=== PATIENT | female | born 1995 | race Two or more races ===

== ENCOUNTER 2024-07-06 02:35 | Inpatient (IN) | payer BC ==
[2024-07-06] MEDS ORDERED: Butorphanol 2 MG/ML SDV IVPUSH PRN (03:58)
[2024-07-06] MEDS ORDERED: Sodium Chloride 0.9% 20 ML SDV IV PRN (03:58)
[2024-07-06] MEDS ORDERED: Ondansetron 4 MG/2 ML SDV IVPUSH PRN (03:58)
[2024-07-06] MEDS ORDERED: Sodium Chloride 0.9% 2.5 ML Syringe FLUSH PRN (03:58)
[2024-07-06] MEDS ORDERED: Sodium Chloride 0.9% 10 ML Syringe FLUSH PRN (03:58)
[2024-07-06] MEDS ORDERED: Carboprost Tromethamine 250 MCG/1 mL Vial IM PRN (03:58)
[2024-07-06] MEDS ORDERED: Misoprostol 200 MCG Tab PO PRN (03:58)
[2024-07-06] MEDS ORDERED: Methylergonovine 0.2 MG/1 ML Amp IM PRN (03:58)
[2024-07-06] MEDS ORDERED: Lidocaine 1% 50 ML MDV INJECT PRN (03:58)
[2024-07-06] MEDS ORDERED: Misoprostol 200 MCG Tab RECTAL PRN (03:58)
[2024-07-06] MEDS ORDERED: Water For Irrigation,Sterile 1,000 ML Container IRR PRN (03:58)
[2024-07-06] MEDS ORDERED: Oxytocin/0.9 % Sodium Chloride 30 UNIT/500 ML BAG IV SCH (04:00)
[2024-07-06 04:13] LABS: HEMATOCRIT 39.9 % (37.0-47.0); HEMOGLOBIN 13.6 g/dL (12.0-16.0); MEAN CORPUSCULAR HEMOGLOBIN 29.1 pg (28.0-32.0); MEAN CORPUSCULAR HGB CONC 34.1 g/dL (32.0-36.0); MEAN CORPUSCULAR VOLUME 85.4 fL (83.0-99.0); PLATELET COUNT,PLT 168 K/uL (150-400); RED BLOOD CELL COUNT 4.67 M/uL (4.10-5.30); WHITE BLOOD CELL COUNT,WBC 9.39 K/uL (3.9-11.3)
[2024-07-06] MEDS: Lactated Ringers 1,000 ML IV SCH (04:33)
[2024-07-06] MEDS: Oxytocin/0.9 % Sodium Chloride 30 UNIT/500 ML BAG IV SCH (07:10)
[2024-07-06] MEDS: Ropivacaine HCl/PF 200 ML ONE (11:19)
[2024-07-06] MEDS ORDERED: ePHEDrine 50 MG/ML SDV IVPUSH PRN (11:26)
[2024-07-06] MEDS ORDERED: Phenylephrine HCl In 0.9% NaCl 1 MG/10 ML Syringe IVPUSH PRN (11:26)
[2024-07-06] MEDS ORDERED: ePHEDrine 50 MG/ML SDV IM PRN (11:26)
[2024-07-06] MEDS ORDERED: Bupivacaine 0.5% 10 ML SDV INJECT ONE (11:26)
[2024-07-06] MEDS ORDERED: Ropivacaine HCl/PF 400 MG in Premix Bag 1 BAG EPIDUR SCH (11:30)
[2024-07-06] MEDS ORDERED: dexmedeTOMIDine HCl 200 MCG/2 ML SDV EPIDUR SCH (11:30)
[2024-07-06] MEDS: Ampicillin 2 GM in Sodium Chloride 0.9% 100 ML IV SCH (22:32)
[2024-07-06] MEDS: Acetaminophen 1,000 MG in Premix Bag 1 BAG IV ONE (22:57)
[2024-07-06] MEDS: Gentamicin 330 MG in Sodium Chloride 0.9% 100 ML IV SCH (23:14)
[2024-07-07] MEDS: Tranexamic Acid in NACL,ISO-OS 1,000 MG in Premix Bag 1 BAG IV PRN (02:57)
[2024-07-07] MEDS ORDERED: Ibuprofen 800 MG Tab PO PRN (03:21)
[2024-07-07] MEDS ORDERED: Simethicone 80 MG Tab.Chew PO PRN (03:21)
[2024-07-07] MEDS ORDERED: Aluminum Hydroxide/Magnesium Hydroxide/Simethicone Susp 30 ML Cup PO PRN (03:21)
[2024-07-07] MEDS ORDERED: Clindamycin Phosphate in D5W 900 MG in Premix Bag 1 BAG IV SCH (03:30)
[2024-07-07 03:46] LABS: PH,UMBILICAL ARTERIAL 7.203 (7.18-7.38); PH,UMBILICAL VENOUS 7.292 (7.25-7.45)
[2024-07-07] MEDS: Clindamycin Phosphate in D5W 50 ML IV ONE (04:05)
[2024-07-07 04:20] LABS: BASOPHILS ABSOLUTE AUTO 0.02 K/uL (0.00-0.20); BASOPHILS PERCENT AUTO 0.1 % (0.0-1.0); HEMATOCRIT 37.7 % (37.0-47.0); HEMOGLOBIN 13.1 g/dL (12.0-16.0); IMMATURE GRAN ABSOLUTE AUTO 0.13 K/uL (0.00-0.05); IMMATURE GRAN PERCENT AUTO 0.7 % (0.0-0.4); LYMPHOCYTES ABSOLUTE AUTO 0.83 K/uL (1.00-4.80); LYMPHOCYTES PERCENT AUTO 4.6 % (24.0-44.0); MEAN CORPUSCULAR HEMOGLOBIN 29.5 pg (28.0-32.0); MEAN CORPUSCULAR HGB CONC 34.7 g/dL (32.0-36.0); MEAN CORPUSCULAR VOLUME 84.9 fL (83.0-99.0); MEAN PLATELET VOLUME 10.1 fL (9.4-12.3); MONOCYTES ABSOLUTE AUTO 1.44 K/uL (0.00-0.80); MONOCYTES PERCENT AUTO 7.9 % (0.0-8.0); NEUTROPHILS ABSOLUTE AUTO 15.75 K/uL (1.80-7.70); NEUTROPHILS PERCENT AUTO 86.7 % (41.0-71.0); PLATELET COUNT,PLT 139 K/uL (150-400); RED BLOOD CELL COUNT 4.44 M/uL (4.10-5.30); WHITE BLOOD CELL COUNT,WBC 18.17 K/uL (3.9-11.3)
[2024-07-07 04:42] LABS: A/G RATIO 0.6 (0.9-1.6); ALBUMIN 2.3 g/dL (3.4-5.0); BILIRUBIN TOTAL 0.7 mg/dL (0.2-1.0); CALCIUM 8.3 mg/dL (8.5-10.1); CARBON DIOXIDE,CO2 18.5 mmol/L (21.0-32.0); CREATININE 0.9 mg/dL (0.6-1.0); EST CRCL DRUG DOSING (CG) 72.29 mL/min; PROTEIN TOTAL,TP 6.2 g/dL (6.4-8.2)
[2024-07-07] MEDS: Witch Hazel Medicated Pads 40/Jar TOP PRN (04:48)
[2024-07-07] MEDS: Benzocaine/Menthol 20%-0.5% Spray 78 GM Cannister TOP PRN (04:48)
[2024-07-07] MEDS: Lanolin 100% Cream 7 GM Tube TOP PRN (04:49)
[2024-07-07] MEDS: Acetaminophen 500 MG Tab PO PRN (05:33)
[2024-07-07] MEDS: Phenylephrine HCl In 0.9% NaCl 1 MG/10 ML Syringe ONE (08:19)
[2024-07-07] MEDS: Bupivacaine 0.5% 10 ML SDV ONE (08:20)
[2024-07-07] MEDS: Clindamycin Phosphate in D5W 900 MG in Premix Bag 1 BAG IV SCH (12:10)
[2024-07-08 06:08] LABS: BASOPHILS ABSOLUTE AUTO 0.03 K/uL (0.00-0.20); BASOPHILS PERCENT AUTO 0.2 % (0.0-1.0); EOSINOPHILS ABSOLUTE AUTO 0.05 K/uL (0.00-0.45); EOSINOPHILS PERCENT AUTO 0.3 % (0.0-6.0); HEMATOCRIT 32.2 % (37.0-47.0); HEMOGLOBIN 10.9 g/dL (12.0-16.0); IMMATURE GRAN ABSOLUTE AUTO 0.15 K/uL (0.00-0.05); IMMATURE GRAN PERCENT AUTO 0.9 % (0.0-0.4); LYMPHOCYTES ABSOLUTE AUTO 1.58 K/uL (1.00-4.80); LYMPHOCYTES PERCENT AUTO 9.5 % (24.0-44.0); MEAN CORPUSCULAR HEMOGLOBIN 29.3 pg (28.0-32.0); MEAN CORPUSCULAR HGB CONC 33.9 g/dL (32.0-36.0); MEAN CORPUSCULAR VOLUME 86.6 fL (83.0-99.0); MEAN PLATELET VOLUME 10.2 fL (9.4-12.3); MONOCYTES ABSOLUTE AUTO 0.91 K/uL (0.00-0.80); MONOCYTES PERCENT AUTO 5.4 % (0.0-8.0); NEUTROPHILS ABSOLUTE AUTO 13.98 K/uL (1.80-7.70); NEUTROPHILS PERCENT AUTO 83.7 % (41.0-71.0); PLATELET COUNT,PLT 144 K/uL (150-400); RED BLOOD CELL COUNT 3.72 M/uL (4.10-5.30)
[2024-07-08] MEDS: Docusate Sodium 100 MG Cap PO PRN (10:28)
== END 2024-07-08 15:00 | disposition home or self-care (01) | DRG 560 ==
LOC: MW.OBCHECK 02:35 → MW.OB 02:36 → MW.OBCHECK 03:59 → MW.OB 03:59 → OBSVTOIN 07-07 02:43 → MW.OB 07-07 05:54
PROVIDERS: ADMIT Obstetrics & Gynecology; ATTEND Obstetrics & Gynecology Obstetrics
PROC: 10E0XZZ Delivery of Products of Conception, External Approach (ICD-10-PCS; principal; 2024-07-07)
PROC: 3E0R3BZ Introduction of Anesthetic Agent into Spinal Canal, Percutaneous Approach (ICD-10-PCS; 2024-07-07)
PROC: 10H07YZ Insertion of Other Device into Products of Conception, Via Natural or Artificial Opening (ICD-10-PCS; 2024-07-07)
PROC: 0HQ9XZZ Repair Perineum Skin, External Approach (ICD-10-PCS; 2024-07-07)
DX: O36.8939 Maternal care for other specified fetal problems, third trimester, other fetus (principal); O76 Abnormality in fetal heart rate and rhythm complicating labor and delivery; O86.12 Endometritis following delivery; Z37.0 Single live birth; O41.1230 Chorioamnionitis, third trimester, not applicable or unspecified; O69.1XX0 Labor and delivery complicated by cord around neck, with compression, not applicable or unspecified; O24.420 Gestational diabetes mellitus in childbirth, diet controlled; O70.0 First degree perineal laceration during delivery; Z3A.39 39 weeks gestation of pregnancy
CPT/HCPCS: 36415; 51702; 59025; 59409; 80053; 82803; 83605; 85025; 85027; 86592; 86850; 86900; 86901; 87040; A9270-GY; J0131; J0290; J0665; J0736; J1580; J2371; J2590; J2795; J3490; J7120